=== PATIENT | male | born 1985 | race Two or more races ===

== ENCOUNTER 2021-06-08 02:50 | Emergency (ER) | payer BC ==
[~2021-06-08] VITALS: Ht 170.2 cm; Wt 59.5 kg
--- NOTE | 2021-06-08 03:08 | PHYS DOC ---
General Adult EDM: Chief Complaint: CHEST PAIN HPI: HPI: ".. I ve been hurting since yesterday... coughing a bit.. it hurt to take a deep breath... " It been constant.. " Patient is a 36 year old male who presents with above hx and complaints of central chest pain. Pain is exacerbated by cough and deep breath. Patient cough has been nonproductive. Patient is up-to-date with flu vaccination and COVID vaccination. Did not get his third booster of COVID. No recent travel. No history of trauma. No history of DVTs or pulmonary embolisms with him or family members. No history suppression. Patient follows with Dr. Estevez. Review of Systems: Review of Systems: Constitutional: Denies fever or chills Eyes: Denies change in visual acuity HENT: Denies nasal congestion or sore throat Respiratory: Complains of nonproductive cough and pain with deep breaths Cardiovascular: Complains of chest pain. GI: Denies abdominal pain, nausea, vomiting, bloody stools or diarrhea : Denies dysuria Musculoskeletal: Denies back pain or joint pain Integument: Denies rash Neurologic: Denies headache, focal weakness or sensory changes Endocrine: Denies polyuria or polydipsia Lymphatic: Denies swollen glands Psychiatric: Denies depression or anxiety Family History: Family History: Noncontributory presentation Current Medications: Current Meds: See nursing for home meds Allergies: Allergies: Allergies Coded Allergies Type Severity Reaction Last Updated Verified Penicillins Allergy Mild Rash 06/08/21 Yes Physical Exam: PE: Constitutional: Moderate acute distress, non-toxic appearance. [] HENT: Normocephalic, atraumatic, bilateral external ears normal, oropharynx moist, no oral exudates, nose normal. [] Eyes: PERRLA, EOMI, conjunctiva normal, no discharge. [] Neck: Normal range of motion, no tenderness, supple, no stridor. [] Cardiovascular:Heart rate regular rhythm, no murmur [] Lungs & Thorax: Bilateral breath sounds equal apex with few scattered wheezes on auscultation [] Abdomen: Bowel sounds normal, soft, no tenderness, no masses, no pulsatile masses. [] Skin: Warm, dry, no erythema, no rash. Tattoos Back: No tenderness, no CVA tenderness. [Extremities: ] No cording appreciated. Neurologic: Alert and oriented X 3, moves extremities on request, has distal sensory,, no focal deficits noted. [] Psychologic: Affect normal, judgement normal, mood normal. [] EKG: EKG: [] Radiology/Procedures: Radiology/Procedures: [][address] [id number] IMAGING REPORT Signed PATIENT: KAROL MARKS ACCOUNT: [id number] : 1985 LOCATION: ER AGE: 36 SEX: M EXAM STATUS: REG ER ORD. PHYSICIAN: FAITH BARROSO MD REASON: cp PROCEDURE: CHEST PA & LATERAL XR CHEST 2V History: Reason: cp / Spl. Instructions: / History: Comparison: None. Findings: No consolidation or pleural effusion. Normal heart size. No pneumothorax. Impression: 1. No acute cardiopulmonary process. Electronically signed by: Jonah Manjarrez DO (06/08/2021 4:11 AM) [facility] DICTATED AND SIGNED BY: JONAH MANJARREZ DO DATE: 06/08/21 0410 CC: FAITH BARROSO MD; ALMA ESTEVEZ MD ~MTH0 0 Heart Score: C/O Chest Pain: N/A Risk Factors: Risk Factors: DM, Current or recent (<one month) smoker, HTN, HLP, family history of CAD, obesity. Risk Scores: Score 0 - 3: 2.5% MACE over next 6 weeks - Discharge Home Score 4 - 6: 20.3% MACE over next 6 weeks - Admit for Clinical Observation Score 7 - 10: 72.7% MACE over next 6 weeks - Early Invasive Strategies Course & Med Decision Making: Course & Med Decision Making Pertinent Labs and Imaging studies reviewed. (See chart for details) D/C as per instructions Impression: 1. Chest Wall Pain 2. Viral syndrome 3. Mild Elevation of AST 42 and ALT 69. [] Dragon Disclaimer: Dragon Disclaimer: This electronic medical record was generated, in whole or in part, using a voice recognition dictation system. Departure Departure: Referrals: ALMA ESTEVEZ MD (PCP) FAITH BARROSO MD Jun 08, 2021 03:08
[2021-06-08] MEDS ORDERED: KETOROLAC 30 MG/ML VIAL. IVP ONE (04:00)
[2021-06-08] MEDS ORDERED: IV RINGERS SOLUTION,LACTATED 1,000 ML IV SCH (04:00)
--- NOTE | 2021-06-08 04:13 | RAD ---
XR CHEST 2V History: Reason: cp / Spl. Instructions: / History: Comparison: None. Findings: No consolidation or pleural effusion. Normal heart size. No pneumothorax. Impression: 1. No acute cardiopulmonary process. Electronically signed by: Jonah Manjarrez DO (06/08/2021 4:11 AM) [facility] [place]
[2021-06-08 04:14] LABS: BASO # 0.1 x10^3/uL (0.0-0.2); BASO % 1 % (0-3); EOS # 0.2 x10^3/uL (0.0-0.7); EOS % 2 % (0-3); HEMATOCRIT 43.4 % (39.0-53.0); HEMOGLOBIN 14.5 g/dL (13.0-17.5); LYMPH # 1.3 x10^3/uL (1.0-4.8); LYMPH % 18 % (24-48); MEAN CORPUSCULAR HEMOGLOBIN 30 pg (25-35); MEAN CORPUSCULAR HGB CONC 33 g/dL (31-37); MEAN CORPUSCULAR VOLUME 90 fL (79-100); MONO # 0.8 x10^3/uL (0.0-1.1); MONO % 11 % (0-9); NEUT # 4.9 x10^3uL (1.8-7.7); NEUT % 68 % (31-73); PLATELET COUNT 172 x10^3/uL (140-400); RED BLOOD COUNT 4.81 x10^6/uL (4.30-5.70); WHITE BLOOD COUNT 7.2 x10^3/uL (4.0-11.0)
--- NOTE | 2021-06-08 04:41 | EKG ---
[address] [address] Test Date: 2021-06-08 Test Time: 02:57:48 Pat Name: KAROL MARKS Department: Room: Gender: Resident Care Director: : 1985 Requested By: FAITH BARROSO Order Number: [id number] Reading MD: Roderick Jo Measurements Intervals [place] Rate: 89 P: 71 MA: 152 QRS: 93 QRSD: 94 T: 42 QT: 338 QTc: 412 Interpretive Statements SINUS RHYTHM RIGHTWARD AXIS Electronically Signed On 06-11-2021 16:43:32 [employer] by Roderick Jo
[2021-06-08 04:48] LABS: CALCIUM 8.7 mg/dL (8.5-10.1); GFR 85.5; POTASSIUM 3.6 mmol/L (3.5-5.1)
[2021-06-08 04:56] LABS: ALBUMIN 4.2 g/dL (3.4-5.0); DIRECT BILIRUBIN 0.1 mg/dL (0.0-0.2); MAGNESIUM 2.4 mg/dL (1.8-2.4); TOTAL BILIRUBIN 0.7 mg/dL (0.2-1.0); TOTAL PROTEIN 7.4 g/dL (6.4-8.2)
[2021-06-08 04:57] LABS: INFLUENZA A PATIENT NEGATIVE (NEGATIVE); INFLUENZA B PATIENT NEGATIVE (NEGATIVE)
[2021-06-08 06:13] LABS: BARBITURATES NEG (NEG); BENZODIAZEPINES NEG (NEG); CANNABINOIDS NEG (NEG); COCAINE NEG (NEG); METHADONE NEG (NEG); OPIATES NEG (NEG); PHENCYCLIDINE NEG (NEG)
[2021-06-08 06:16] LABS: AMPHETAMINE/METHAMPHETAMINE NEG (NEG)
[2021-06-08 06:22] LABS: BACTERIA,URINE 0 /HPF (0-FEW); BILIRUBIN,URINE NEG (NEG); CLARITY,URINE CLEAR; COLOR,URINE YELLOW; GLUCOSE,URINE NEG (NEG); NITRITE,URINE NEG (NEG); UROBILINOGEN,URINE 0.2 mg/dL (0.2 mg/dL)
[2021-06-08 06:23] LABS: SQUAMOUS EPITHELIAL CELL,UR OCC /LPF
[2021-06-08 07:00] VITALS: BP 106/64
== END 2021-06-08 07:09 | disposition home or self-care (01) ==
LOC: ER 02:50
DX: R07.89 Other chest pain (principal); B34.9 Viral infection, unspecified; R79.89 Other specified abnormal findings of blood chemistry; Z20.822 Contact with and (suspected) exposure to COVID-19; Z88.0 Allergy status to penicillin
CPT/HCPCS: 36415; 71046; 80048; 80076; 80307; 81001; 82550; 83690; 83735; 83880; 84443; 84484; 85025; 85379; 85610; 85730; 87428; 93005; 96361; 96374; 99285; J1885; J7120